=== PATIENT | male | born 1945 | race Two or more races ===

== ENCOUNTER 2021-03-31 09:16 | Outpatient (CLI) | payer OTHER ==
[~2021-03-31 09:16] MED LIST: BENADRYL50 MG; CIPROFLOXA; DITROPAN X10 MG/BOTT; DOC-Q-LACE100 MG; GLIPIZIDE2.5 MG/BO1 PO; LANTUS100 U/ML SQ; [UNRECOGNIZED DRUG - OTHER]
== END 2021-03-31 09:19 | disposition home or self-care (01) ==
LOC: RAD 09:16
PROVIDERS: ATTEND Ophthalmology
DX: R07.89 Other chest pain (principal)

== ENCOUNTER 2021-10-08 09:30 | Emergency (ER) | payer OTHER ==
[~2021-10-08] VITALS: Ht 154.9 cm; Wt 64.4 kg
[2021-10-08] MEDS ORDERED: JANUMET XR 50-1 EACH PO (09:49)
[2021-10-08] MEDS ORDERED: FOLIC ACID20 MG PO (09:50)
[2021-10-08] MEDS ORDERED: NORFLEX100MG PO (13:52)
[2021-10-08] MEDS ORDERED: KETO10TA2 PO (13:52)
== END 2021-10-08 14:14 | disposition home or self-care (01) ==
LOC: ER 09:30
DX: M54.2 Cervicalgia (principal); M25.511 Pain in right shoulder; E11.9 Type 2 diabetes mellitus without complications; Z79.84 Long term (current) use of oral hypoglycemic drugs

== ENCOUNTER 2021-11-04 07:05 | Inpatient (IN) | payer OTHER ==
[~2021-11-04] VITALS: Ht 154.9 cm; Wt 62.6 kg
[~2021-11-04 07:05] MED LIST changes: +FOLIC ACID20 MG PO; +JANUMET XR 50-1 EACH PO; +KETO10TA2 PO; +NORFLEX100MG PO
[2021-11-04] MEDS ORDERED: JANUMET XR 50-1 EAC1 PO (07:31)
[2021-11-05] MEDS ORDERED: DICLOFENAC POTA50 MG (08:39)
[2021-11-05] MEDS ORDERED: GLIPIZIDE ER10 MG (08:40)
[2021-11-05] MEDS ORDERED: SIMVASTATIN20 MG (08:40)
[2021-11-05] MEDS ORDERED: RAMIPRIL1.25 MG (08:40)
[2021-11-05] MEDS ORDERED: VITAMIN D350 MCG (08:40)
[2021-11-10] MEDS ORDERED: SERTRALINE HCL50 MG PO (17:42)
[2021-11-10] MEDS ORDERED: ST. JOSEPH ASPI81 M2 PO (17:42)
[2021-11-10] MEDS ORDERED: ALPRAZOLAM0.5 MG PO (17:42)
== END 2021-11-10 21:13 | disposition home or self-care (01) | DRG 558 ==
LOC: ER 07:05 → SEC-K 17:30 → MEDI 19:16 → MEDJ 11-07 15:01
PROVIDERS: ADMIT Internal Medicine; ATTEND Internal Medicine
PROC: BW28ZZZ Computerized Tomography (CT Scan) of Head (ICD-10-PCS; principal; 2021-11-04)
PROC: B24BZZZ Ultrasonography of Heart with Aorta (ICD-10-PCS; 2021-11-04)
PROC: B345ZZZ Ultrasonography of Bilateral Common Carotid Arteries (ICD-10-PCS; 2021-11-04)
PROC: 4A12X4Z Monitoring of Cardiac Electrical Activity, External Approach (ICD-10-PCS; 2021-11-04)
PROC: B030YZZ Magnetic Resonance Imaging (MRI) of Brain using Other Contrast (ICD-10-PCS; 2021-11-06)
PROC: C51DYZZ Planar Nuclear Medicine Imaging of Bilateral Lower Extremity Veins using Other Radionuclide (ICD-10-PCS; 2021-11-07)
DX: M75.01 Adhesive capsulitis of right shoulder (principal); M75.02 Adhesive capsulitis of left shoulder; R29.898 Other symptoms and signs involving the musculoskeletal system; M75.52 Bursitis of left shoulder; M75.51 Bursitis of right shoulder; F45.0 Somatization disorder; K59.09 Other constipation; Z79.4 Long term (current) use of insulin; E78.49 Other hyperlipidemia; I73.89 Other specified peripheral vascular diseases; I12.9 Hypertensive chronic kidney disease with stage 1 through stage 4 chronic kidney disease, or unspecified chronic kidney disease; E11.22 Type 2 diabetes mellitus with diabetic chronic kidney disease; N18.2 Chronic kidney disease, stage 2 (mild); F44.4 Conversion disorder with motor symptom or deficit; Z20.822 Contact with and (suspected) exposure to COVID-19
CPT/HCPCS: 70552

== ENCOUNTER 2021-12-30 08:19 | Outpatient (CLI) | payer OTHER ==
[~2021-12-30 08:19] MED LIST changes: +ALPRAZOLAM0.5 MG PO; +DICLOFENAC POTA50 MG; +GLIPIZIDE ER10 MG; +JANUMET XR 50-1 EAC1 PO; +RAMIPRIL1.25 MG; +SERTRALINE HCL50 MG PO; +SIMVASTATIN20 MG; +ST. JOSEPH ASPI81 M2 PO; +VITAMIN D350 MCG
== END 2021-12-30 08:31 | disposition home or self-care (01) ==
LOC: SONOGRAMA 08:19
PROVIDERS: ATTEND Physical Medicine & Rehabilitation
DX: M25.512 Pain in left shoulder (principal); M25.511 Pain in right shoulder

== ENCOUNTER 2022-01-12 12:14 | Outpatient (CLI) | payer OTHER | END 2022-01-12 12:25 | disposition home or self-care (01) | LOC: RAD 12:14 | PROVIDERS: ATTEND Physical Medicine & Rehabilitation | DX: S29.9XXA Unspecified injury of thorax, initial encounter (principal); X58.XXXA Exposure to other specified factors, initial encounter; Y93.9 Activity, unspecified; Y92.9 Unspecified place or not applicable; Y99.9 Unspecified external cause status ==

== ENCOUNTER 2022-11-11 16:22 | Emergency (ER) | payer OTHER ==
[~2022-11-11] VITALS: Ht 154.9 cm; Wt 62.6 kg
[~2022-11-11 16:22] MED LIST changes: +DICLOFENAC POTA50 MG PO; +GABAPENTIN300 M2 PO
[2022-11-11] MEDS ORDERED: OSEL75CA PO (18:41)
== END 2022-11-11 18:44 | disposition home or self-care (01) ==
LOC: ER 16:22
DX: J10.1 Influenza due to other identified influenza virus with other respiratory manifestations (principal); Z20.822 Contact with and (suspected) exposure to COVID-19; E11.9 Type 2 diabetes mellitus without complications; Z79.4 Long term (current) use of insulin

== ENCOUNTER 2023-05-15 14:06 | Emergency (ER) | payer OTHER ==
[~2023-05-15] VITALS: Ht 154.9 cm; Wt 60.3 kg
[~2023-05-15 14:06] MED LIST changes: +OSEL75CA PO
== END 2023-05-15 20:51 | disposition home or self-care (01) ==
LOC: ER 14:07
DX: S80.02XA Contusion of left knee, initial encounter (principal); W18.39XA Other fall on same level, initial encounter; Y93.89 Activity, other specified; Y92.89 Other specified places as the place of occurrence of the external cause; Y99.9 Unspecified external cause status; E11.9 Type 2 diabetes mellitus without complications; Z79.84 Long term (current) use of oral hypoglycemic drugs

== ENCOUNTER 2023-12-30 08:40 | Outpatient (CLI) | payer OTHER | END 2023-12-30 08:45 | disposition home or self-care (01) | LOC: SONOGRAMA 08:40 | PROVIDERS: ATTEND Internal Medicine | DX: T14.90XA Injury, unspecified, initial encounter (principal); S22.49XA Multiple fractures of ribs, unspecified side, initial encounter for closed fracture; S39.91XA Unspecified injury of abdomen, initial encounter; R10.11 Right upper quadrant pain ==

== ENCOUNTER 2024-01-23 13:30 | Emergency (ER) | payer OTHER ==
[~2024-01-23] VITALS: Ht 154.9 cm; Wt 60.8 kg
[2024-01-23] MEDS ORDERED: DEXAMETHASONE SODIUM PHOSPHATE 4 MG/ML VIAL IM STA (14:54)
[2024-01-23] MEDS ORDERED: ORPHENADRINE CITRATE 30 MG/ML AMPUL IM STA (14:55)
[2024-01-23] MEDS ORDERED: TYLENOL325 MG PO (17:03)
== END 2024-01-23 18:06 | disposition home or self-care (01) ==
LOC: ER 13:31
DX: S29.8XXA Other specified injuries of thorax, initial encounter (principal); W19.XXXA Unspecified fall, initial encounter; Y93.89 Activity, other specified; Y92.89 Other specified places as the place of occurrence of the external cause; Y99.8 Other external cause status
CPT/HCPCS: 71111; 96372; 99283; J1100; J2360

== ENCOUNTER 2024-03-01 11:09 | Emergency (ER) | payer OTHER ==
[~2024-03-01] VITALS: Ht 154.9 cm; Wt 59.9 kg
[~2024-03-01 11:09] MED LIST changes: +TYLENOL325 MG PO
[2024-03-01] MEDS ORDERED: CEFTRIAXONE SODIUM 1,000 MG VIAL IM ONE (12:45)
[2024-03-01] MEDS ORDERED: KETOROLAC TROMETHAMINE 60 MG VIAL IM ONE (12:45)
[2024-03-01 13:33] LABS: HEMATOCRIT 35.7 % (39.0-48.0); HEMOGLOBIN 12.8 g/dL (13-16.00); MEAN CORPUSCULAR HEMOGLOBIN 32.3 pg (27.00-32.0); MEAN CORPUSCULAR HGB CONC 35.9 g/dl (32.0-36.0); PLATELET COUNT 236 K/uL (150-450); RED BLOOD COUNT 3.97 M/uL (4.00-6.00); RED CELL DISTRIBUTION WIDTH 13.9 % (11.5-14.5)
[2024-03-01] MEDS ORDERED: KETO10TA2 PO (14:55)
== END 2024-03-01 14:58 | disposition home or self-care (01) ==
LOC: ER 11:11
PROVIDERS: General Practice
DX: M25.473 Effusion, unspecified ankle (principal); E11.9 Type 2 diabetes mellitus without complications; Z79.4 Long term (current) use of insulin
CPT/HCPCS: 36415; 73610; 96372; 99283; J0696; J1885

== ENCOUNTER 2024-05-21 12:23 | Emergency (ER) | payer OTHER ==
[~2024-05-21] VITALS: Ht 154.9 cm; Wt 61.2 kg
[2024-05-21] MEDS ORDERED: TETANUS & DIPHTHERIA TOX,ADULT 0.5 ML VIAL IM ONE (15:00)
[2024-05-21] MEDS ORDERED: INTESTINEX680 M1 PO (15:08)
[2024-05-21] MEDS ORDERED: CLEOCIN HCL300 MG PO (15:08)
[2024-05-21] MEDS ORDERED: ANTIFUNGAL113 GM TOP (15:08)
[2024-05-21] MEDS ORDERED: CLINDAMYCIN PHOSPHATE 150 MG/ML (300mg) IM ONE (15:15)
[2024-05-21] MEDS ORDERED: CLINDAMYCIN PHOSPHATE 150 MG/ML (300mg) ONE (15:41)
[2024-05-21] MEDS ORDERED: TETANUS DIPHTHERIA TOX. ADSOR 5 ML VIAL IM ONE (15:41)
== END 2024-05-21 15:49 | disposition home or self-care (01) ==
LOC: ER 12:23
DX: B35.3 Tinea pedis (principal); I10 Essential (primary) hypertension; E78.49 Other hyperlipidemia; R23.4 Changes in skin texture; S60.511A Abrasion of right hand, initial encounter; E11.9 Type 2 diabetes mellitus without complications; Z79.4 Long term (current) use of insulin
CPT/HCPCS: 90471; 90714; 99282; J1670; J3490

== ENCOUNTER 2024-08-14 10:50 | Emergency (ER) | payer OTHER ==
[~2024-08-14] VITALS: Ht 154.9 cm; Wt 59.0 kg
[~2024-08-14 10:50] MED LIST changes: +ANTIFUNGAL113 GM TOP; +CLEOCIN HCL300 MG PO; +INTESTINEX680 M1 PO
[2024-08-14 11:09] VITALS: BP 146/81; O2SAT 99
[2024-08-14 13:31] LABS: HEMATOCRIT 36.4 % (39.0-48.0); HEMOGLOBIN 12.9 g/dL (13-16.00); MEAN CELL VOLUME 89.6 fL (80.0-100.00); MEAN CORPUSCULAR HEMOGLOBIN 31.8 pg (27.00-32.0); MEAN CORPUSCULAR HGB CONC 35.5 g/dl (32.0-36.0); PLATELET COUNT 225 K/uL (150-450); RED BLOOD COUNT 4.06 M/uL (4.00-6.00)
[2024-08-14 13:38] LABS: ERYTHROCYTE SEDIMENTATION RATE 5 mm/hr
[2024-08-14 13:58] LABS: ALBUMIN 3.6 gm/dL (3.4-5.0); BILIRUBIN TOTAL 0.5 mg/dL (0.3-1.2); CALCIUM 9.4 mg/dL (8.5-10.1); CREATININE SERUM 1.15 mg/dL (0.70-1.30); GFR 61.19; GLOBULINA 3.9 G/DL (2.4-3.5); POTASSIUM 4.8 mEq/L (3.5-5.1); TOTAL PROTEIN 7.5 gm/dL (6.4-8.2)
[2024-08-14] MEDS ORDERED: CEFTRIAXONE SODIUM 1,000 MG VIAL IM ONE (16:15)
[2024-08-14] MEDS ORDERED: CEPHALEXIN500 MG PO (16:18)
[2024-08-14] MEDS ORDERED: CEFTRIAXONE SODIUM 1,000 MG VIAL ONE (16:22)
[2024-08-14] MEDS ORDERED: BACITRACIN-NEOMYCIN-POLYMYXIN 0.9 GM PACKET TOP ONE ×2 (16:22→16:30)
== END 2024-08-14 18:33 | disposition home or self-care (01) ==
LOC: ER 10:51
PROVIDERS: Preventive Medicine Public Health & General Preventive Medicine
DX: S80.212A Abrasion, left knee, initial encounter (principal); X58.XXXA Exposure to other specified factors, initial encounter; Y93.89 Activity, other specified; Y92.89 Other specified places as the place of occurrence of the external cause; Y99.9 Unspecified external cause status; E11.9 Type 2 diabetes mellitus without complications; Z79.4 Long term (current) use of insulin; Z79.84 Long term (current) use of oral hypoglycemic drugs

== ENCOUNTER 2024-08-30 10:41 | Outpatient (CLI) | payer OTHER ==
[~2024-08-30 10:41] MED LIST changes: +CEPHALEXIN500 MG PO
== END 2024-08-30 10:48 | disposition home or self-care (01) ==
LOC: RAD 10:41
PROVIDERS: ATTEND Internal Medicine
DX: M17.12 Unilateral primary osteoarthritis, left knee (principal); M25.562 Pain in left knee

== ENCOUNTER 2025-03-15 13:30 | Outpatient (CLI) | payer OTHER | END 2025-03-15 13:36 | disposition home or self-care (01) | LOC: RAD 13:30 | PROVIDERS: ATTEND Internal Medicine | DX: M25.571 Pain in right ankle and joints of right foot (principal); M19.071 Primary osteoarthritis, right ankle and foot ==